=== PATIENT | female | born 1990 | race Caucasian/White ===

== ENCOUNTER 2016-06-21 16:26 | Emergency (ER) | payer MEDICAID ==
[2016-06-21] MEDS ORDERED: DIPHENHYDRAMINE 50 MG/ML VIAL ONE (20:30)
[2016-06-21] MEDS ORDERED: ONDANSETRON 4 MG VIAL ONE (20:31)
[2016-06-21] MEDS ORDERED: CEFTRIAXONE 1 GM VIAL ONE (20:31)
[2016-06-21] MEDS ORDERED: SODIUM CHLORIDE 0.9% 1,000 ML ONE (20:31)
[2016-06-21] MEDS ORDERED: SODIUM CHLORIDE 0.9% 100 ML IV ONE (20:31)
[2016-06-21] MEDS ORDERED: ACETAMINOPHEN 325 MG TAB ONE (20:31)
== END 2016-06-21 22:39 | disposition home or self-care (01) ==
LOC: ER 16:26
DX: O23.13 Infections of bladder in pregnancy, third trimester (principal); Z3A.35 35 weeks gestation of pregnancy; Z79.899 Other long term (current) drug therapy; K21.9 Gastro-esophageal reflux disease without esophagitis; F41.1 Generalized anxiety disorder
CPT/HCPCS: 87088; 96361; 96365; 96375

== ENCOUNTER 2016-07-08 23:31 | Inpatient (IN) | payer MEDICAID ==
[~2016-07-08] VITALS: Ht 177.8 cm; Wt 90.7 kg
[2016-07-09] VITALS (17 sets, daily range): BP systolic 115–137; RESP 16–24; TEMP 97.2–98.3; Ht 177.8 cm; Wt 90.7 kg
[2016-07-09] MEDS ORDERED: PENICILLIN G 5 MU in SODIUM CHLORIDE 0.9% 250 ML IV ONE (01:55)
[2016-07-09] MEDS ORDERED: CEFAZOLIN (LD/OB) 100 ML IV PRN (01:55)
[2016-07-09] MEDS ORDERED: ACETAMINOPHEN 325 MG TAB PO PRN (01:55)
[2016-07-09] MEDS ORDERED: LIDOCAINE 1% 30 ML PF INFILTRATE ONE (01:55)
[2016-07-09] MEDS ORDERED: FAMOTIDINE 20 MG INJ IV PRN (01:55)
[2016-07-09] MEDS ORDERED: METOCLOPRAMIDE 10 MG/2 ML VIAL IV PUSH PRN (01:55)
[2016-07-09] MEDS ORDERED: ONDANSETRON 4 MG VIAL IV PRN (01:55)
[2016-07-09] MEDS ORDERED: MORPHINE 4 MG/ML SYR IV PRN (01:55)
[2016-07-09] MEDS ORDERED: ALU/MAG/SIM 30 ML UDC PO PRN (01:55)
[2016-07-09] MEDS ORDERED: OXYTOCIN 15 UNITS/250 ML NS 250 ML IV SCH (01:55)
[2016-07-09] MEDS ORDERED: FAMOTIDINE 20 MG TAB PO PRN (01:55)
[2016-07-09] MEDS ORDERED: TERBUTALINE 1 MG/ML VIAL SUBQ PRN (01:55)
[2016-07-09] MEDS ORDERED: PROMETHAZINE 25 MG/ML VIAL IV PRN (01:55)
[2016-07-09] MEDS: LACT RINGERS 1,000 ML IV SCH ×2 (02:26→04:13)
[2016-07-09] MEDS ORDERED: ROPIV/FENT 0.2%-2MCG/ML 100 ML EPIDURAL ONE (03:22)
[2016-07-09] MEDS ORDERED: FENTANYL 100 MCG/2 ML AMP ONE (03:22)
[2016-07-09] MEDS ORDERED: FENTANYL 100 MCG/2 ML AMP EPIDURAL ONE (04:10)
[2016-07-09] MEDS ORDERED: SODIUM CHLORIDE 0.9% 500 ML IV PRN (04:10)
[2016-07-09] MEDS ORDERED: ROPIV/FENT 0.2%-2MCG/ML 100 ML EPIDURAL SCH (04:10)
[2016-07-09] MEDS ORDERED: LACT RINGERS 500 ML IV PRN (04:10)
[2016-07-09] MEDS ORDERED: LACT RINGERS 500 ML IV ONE (04:10)
[2016-07-09] MEDS ORDERED: PENICILLIN G 2.5 MU in SODIUM CHLORIDE 0.9% 100 ML IV SCH (06:00)
[2016-07-09] MEDS ORDERED: MAG HYDROX 30 ML UDC PO PRN (06:30)
[2016-07-09] MEDS ORDERED: BISACODYL 10 MG SUPP RECTAL PRN (06:30)
[2016-07-09] MEDS ORDERED: ZOLPIDEM 5 MG TAB PO PRN (06:30)
[2016-07-09] MEDS ORDERED: DERMOPLAST SPRAY TOPICAL PRN (06:30)
[2016-07-09] MEDS ORDERED: NEB-ALBUTEROL 2.5 MG/3 ML INH PRN (06:30)
[2016-07-09] MEDS ORDERED: MEASLES,MUMPS,RUBELLA VAC SUBQ.VACC ONE (06:30)
[2016-07-09] MEDS ORDERED: DICYCLOMINE 20 MG TAB PO PRN (06:30)
[2016-07-09] MEDS ORDERED: TDaP 0.5 ML VIAL IM.VACC ONE (06:30)
[2016-07-09] MEDS: ASTRINGENT MED PADS 40'S TOPICAL PRN (06:46)
[2016-07-09] MEDS: OXYTOCIN 15 UNITS/250 ML NS 250 ML IV SCH ×2 (06:46→06:47)
[2016-07-09] MEDS: Ibuprofen 600 MG TAB PO SCH ×4 (06:46→23:14)
[2016-07-09] MEDS: MISOPROSTOL 200 MCG TAB PO SCH ×2 (06:46→10:48)
[2016-07-09] MEDS ORDERED: **ONLY ANESTEHSIA MAY ORDER OPIATES WHILE ON EPIDURAL XX SCH (08:00)
[2016-07-09] MEDS: DOCUSATE SOD 100 MG CAP PO SCH ×2 (09:06→21:00)
[2016-07-09] MEDS: PRENATAL VITAMIN TAB PO SCH (09:06)
[2016-07-09] MEDS: FAMOTIDINE 20 MG TAB PO SCH ×2 (09:06→23:15)
[2016-07-09] MEDS ORDERED: ROPIVACAINE 0.2% 20 ML VL EPIDURAL ONE (10:10)
[2016-07-10 02:37] VITALS: BP_SYST 127; RESP 20; TEMP 97.4
[2016-07-10] MEDS: Ibuprofen 600 MG TAB PO SCH ×4 (05:51→23:20)
[2016-07-10 05:57] VITALS: BP_SYST 125; RESP 18; TEMP 97.6
[2016-07-10] MEDS: PRENATAL VITAMIN TAB PO SCH (08:36)
[2016-07-10] MEDS: DOCUSATE SOD 100 MG CAP PO SCH ×2 (08:37→21:06)
[2016-07-10] MEDS: FAMOTIDINE 20 MG TAB PO SCH ×2 (08:37→21:06)
[2016-07-10 09:12] VITALS: BP_SYST 123; RESP 18; TEMP 97.7
[2016-07-10 17:36] VITALS: BP_SYST 125; RESP 18; TEMP 97.5
[2016-07-11] MEDS: Ibuprofen 600 MG TAB PO SCH ×2 (05:48→12:00)
[2016-07-11 05:55] VITALS: BP_SYST 134; RESP 16; TEMP 97.8
[2016-07-11] MEDS: DOCUSATE SOD 100 MG CAP PO SCH (08:04)
[2016-07-11] MEDS: PRENATAL VITAMIN TAB PO SCH (08:04)
[2016-07-11] MEDS: FAMOTIDINE 20 MG TAB PO SCH (08:04)
[2016-07-11 10:12] VITALS: BP_SYST 121; RESP 14; TEMP 97.8
[2016-07-11] MEDS: ASTRINGENT MED PADS 40'S TOPICAL PRN (11:04)
[2016-07-11 11:13] VITALS: BP_SYST 121; RESP 14; TEMP 97.8
== END 2016-07-11 13:42 | disposition home or self-care (01) | DRG 775 ==
LOC: LDOP 23:31 → LD 07-09 02:00 → OB 07-09 08:32
PROVIDERS: ADMIT Obstetrics & Gynecology; ATTEND Obstetrics & Gynecology
PROC: 10E0XZZ Delivery of Products of Conception, External Approach (ICD-10-PCS; principal; 2016-07-09)
DX: O70.0 First degree perineal laceration during delivery (principal); Z37.0 Single live birth; Z3A.38 38 weeks gestation of pregnancy
CPT/HCPCS: 82803; 85014; 85018; 85025; 86850; 86900; 86901; 86970; 94799